=== PATIENT | female | born 1995 | race Caucasian/White ===

== ENCOUNTER 2017-01-23 09:57 | Emergency (ER) | payer BC ==
[2017-01-23 10:17] VITALS: BP 120/70
--- NOTE | 2017-01-23 12:10 | UC ---
eden Alba Timothy, scribed for Isreal Franco MD on 01/23/17 at 1103 . Skin Complaint HPI - HPI Summary HPI Summary: Kimberly Lang is a 21 yo female presenting to [facility] with 4/10 pain in her left foot with a blister for the past two days. The area has become red, swollen, and painful as of last night. Pt is concerned for staph infection, and has Hx of same. Her pain increases with touch. She denies any FB, fever, chills, red streaks. Her MHx includes asthma, staph infection. - History of Current Complaint Chief Complaint: UCSkin Time Seen by Provider: 01/23/17 11:09 Stated Complaint: SKIN ISSUE Hx Obtained From: Patient Hx Last Menstrual Period: 01/05/17 Onset/Duration: Sudden Onset, Lasting Days, Still Present Skin Exposure Onset/Duration: Days Ago Timing: Constant Onset Severity: Moderate Current Severity: Moderate Pain Intensity: 4 Pain Scale Used: 0-10 Numeric Location: Foot (Left) Character: Swelling, Pain, Redness Aggravating: Touch - Allergy/Home Medications Allergies/Adverse Reactions: Allergies Allergy/AdvReac Type Severity Reaction Status Date / Time Amoxicillin Allergy Rash Verified 01/23/17 10:12 Home Medications: Home Medications Albuterol HFA INHALER* [Ventolin HFA Inhaler*] 01/23/17 [History] Ibuprofen TAB* [Advil TAB*] 1 tab PO PRN 01/23/17 [History] Review of Systems Constitutional: Negative Skin: Other - blister left foot, swelling, erythema Eyes: Negative ENT: Negative Respiratory: Negative Cardiovascular: Negative Gastrointestinal: Negative Genitourinary: Negative Motor: Negative Neurovascular: Negative Musculoskeletal: Negative Neurological: Negative Psychological: Negative All Other Systems Reviewed And Are Negative: Yes PMH/Surg Hx/FS Hx/Imm Hx - Additional Past Medical History Additional PMH: staph infection Respiratory History: Asthma - Surgical History Surgical History: None - Family History Known Family History: Positive: Hypertension Negative: Cardiac Disease, Diabetes - Social History Alcohol Use: None Substance Use Type: None Smoking Status (MU): Never Smoked Tobacco Physical Exam Triage Information Reviewed: Yes Vital Signs: Initial Vital Signs Temp 99.2 F 01/23/17 10:13 Pulse 82 01/23/17 10:13 Resp 16 01/23/17 10:13 BP 120/70 01/23/17 10:13 Pulse Ox 100 01/23/17 10:13 Vital Signs Reviewed: Yes - Additional Comments The patient is well-nourished in no acute distress and in no acute pain. The skin is warm and dry and skin color reflects adequate perfusion. Over the lateral aspect of the distal 1st metatarsal lateral aspect, with edema, erythema , and some vesicle. There is no lymphangitis. There are good pulses, she has full ROM. HEENT: The head is normocephalic and atraumatic. The pupils are equal and reactive. The conjunctivae are clear and without drainage. Nares are patent and without drainage. Mouth reveals moist mucous membranes and the throat is without erythema and exudate. The external ears are intact. The ear canals are patent and without drainage. The tympanic membranes are intact. Neck is supple with full range of motion and non-tender. There are no carotid bruits. There is no neck vein distension. Respiratory: Chest is non-tender. Lungs are clear to auscultation and breath sounds are symmetrical and equal. Cardiovascular: Heart is regular rate and rhythm. There is no murmur or rub auscultated. There is no peripheral edema and pulses are symmetrical and equal. Abdomen: The abdomen is soft and non-tender. There are normal bowel sounds heard in all four quadrants and there is no organomegaly palpated. Musculoskeletal: There is no back pain noted. Extremities are non-tender with full range of motion. There is good capillary refill. There is no peripheral edema or calf tenderness elicited. Neurological: Patient is alert and oriented to person, place and time. The patient has symmetrical motor strength in all four extremities. Cranial nerves are grossly intact. Deep tendon reflexes are symmetrical and equal in all four extremities. Psychiatric: The patient has an appropriate affect and does not exhibit any anxiety or depression. Course/Dx - Course Course Of Treatment: Kimberly Lang is a 21 yo female presenting to [facility] with 4/ 10 pain in her left foot with an erythematous, swollen, blister for the past couple days, concerned for staph infection with a Hx of the same. Pt medication list reviewed this visit. Pt states she did not tolerate bactrim well when it was administered. After clinical examination, she will be discharged home with cellulitis with appropriate instructions and follow up. - Differential Diagnoses - Skin Complaint Differential Diagnoses: Abscess, Cellulitis, Other - staph infection - Diagnoses Provider Diagnoses: cellulitis LLE Discharge - Discharge Plan Condition: Stable Disposition: HOME Prescriptions: Clindamycin Cap(NF) [Cleocin 300 mg Cap(NF)] 300 mg PO TID #21 cap Patient Education Materials: Cellulitis (ED) Referrals: [facility] [Outside] Additional Instructions: Please follow up with the primary care physician provided regarding your visit to urgent care today. Return to urgent care or the emergency department with any new or recurring symptoms. The documentation as recorded by the eden matute Timothy accurately reflects the service I personally performed and the decisions made by , Isreal Franco MD.
== END 2017-01-23 11:23 | disposition home or self-care (01) ==
LOC: UCEAST 09:57
DX: L03.116 Cellulitis of left lower limb (principal); J45.909 Unspecified asthma, uncomplicated
CPT/HCPCS: 99202; G0463

== ENCOUNTER → 2019-08-21 07:11 | Day surgery (SDC) | payer BC ==
[~2019-08-21 07:11] MED LIST: Buffered Lidocaine 1% SYRIN* 1 ML/SYRINGE INTRADERM ONE; Dexamethasone IV* 4 MG/ML 1 ML (4 MG) ONE; HYDROmorphone INJ1* 1 MG/ML SYRINGE IV PRN; HYDROmorphone INJ1* 1 MG/ML SYRINGE ONE; Ibuprofen TAB* 600 MG PO PRN; Ketorolac INJ* 30 MG/ML 1 ML VIAL ONE; Lactated Ringers 1000 ML Bag* 1,000 ML IV SCH; Lidocaine 1% w EPI 1:200,000* SDV 30 ML VIAL ONE; Naloxone* 0.4 MG/ML 1 ML VIAL IV PRN; Ondansetron INJ* 2 MG/ML VIAL IV PRN; Ondansetron INJ* 2 MG/ML VIAL ONE; PROCHLORPERAZINE INJ 5 MG/ML 2 ML VIAL IV PRN; Propofol* 10 MG/ML 20 ML BTL ONE
[2019-08-21 12:05] VITALS: BP 119/80
--- NOTE | 2019-08-22 01:38 | OP ---
DATE OF OPERATION: 08/21/19 - [facility] DATE OF : 89 SURGEON: Rebecca Edwards MD ANESTHESIOLOGIST: Dr. Sanchez. ANESTHESIA: General endotracheal anesthesia with an LMA. PRE-OP DIAGNOSIS: Tight hymenal ring. POST-OP DIAGNOSIS: Tight hymenal ring. OPERATIVE PROCEDURE: Hymenectomy. ESTIMATED BLOOD LOSS: Minimal, less than 20 cc. SPECIMENS: None. FINDINGS: Septate hymen. Normal-appearing urethra. Normal-appearing vaginal canal. Normal-appearing cervix. There is a 5 mm flat round brown mole on the left vulva, and an 8 mm flat brown mole higher up on the left vulva. COUNTS: Sponge, lap, and needle counts were correct x2. CONDITION: The patient was brought to the recovery room awake and in stable condition. DESCRIPTION OF PROCEDURE: The patient was brought to the operating room. When general anesthesia was found to be adequate, the patient was prepped and draped in the usual sterile fashion in the dorsal lithotomy position. Time-out was performed. Exam under anesthesia was performed. 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 The septum was excised using the 15-blade scalpel and 3 sutures were placed using 4-0 Vicryl to obtain excellent hemostasis. A Scot speculum was used to examine the cervix which appeared normal. The vaginal canal appeared normal. The urethra appeared normal. All instruments were removed from the vagina. The patient tolerated the procedure well. Sponge, lap, and needle counts were correct x2 and the patient was brought to the recovery room awake and in stable condition. [id number]/[facility] #: [id number] [facility]
== END | disposition home or self-care (01) ==
LOC: OR 07:11
PROVIDERS: ATTEND Obstetrics & Gynecology
DX: N89.6 Tight hymenal ring (principal); J45.909 Unspecified asthma, uncomplicated; Z88.1 Allergy status to other antibiotic agents
CPT/HCPCS: J1100; J1170; J1885; J2001; J2405; J2704